=== PATIENT | male | born 1970 | race Caucasian/White ===

== ENCOUNTER → 2024-04-17 06:07 | Day surgery (SDC) | payer OTHER, SELFPAY | LOC: GI 06:07 | PROVIDERS: ATTENDING PHYSICIAN Internal Medicine Gastroenterology | DX: Z12.11 Encounter for screening for malignant neoplasm of colon (principal); D12.8 Benign neoplasm of rectum; K64.8 Other hemorrhoids; Z86.010 Personal history of colon polyps | CPT/HCPCS: 45380; 88305 ==

== ENCOUNTER → 2025-07-14 11:59 | Outpatient (REF) | payer OTHER, SELFPAY | LOC: RAD 11:59 | PROVIDERS: ATTENDING PHYSICIAN Physician Assistant Medical; FAMILY PHYSICIAN Family Medicine | DX: M54.2 Cervicalgia (principal) | CPT/HCPCS: 72050 ==

== ENCOUNTER 2025-07-17 00:36 | Emergency (ER) | payer OTHER, SELFPAY ==
[2025-07-17 00:49] VITALS: BP 145/97
[2025-07-17 01:14] LABS: Hematocrit 40.8 % (39.0-52.0); Hemoglobin 14.3 g/dL (13.0-18.0); Mean Corp Hgb Conc. 35.0 g/dL (33.0-37.0); Mean Corpuscular Volume 89.7 fL (80.0-94.0); Nucleated Red Blood Cells % 0 % (-); Platelet Count 199 10^3/uL (130-400); Red Cell Dist. Width 11.4 % (11.5-14.5)
[2025-07-17 01:37] LABS: ALT (SGPT) 26 U/L (0-50); AST (SGOT) 28 U/L (17-59); Albumin 4.7 g/dl (3.5-5.0); Alkaline Phosphatase 59 U/L (38-126); Blood Urea Nitrogen 12 mg/dl (9-20); Calcium 9.4 mg/dl (8.4-10.2); Carbon Dioxide 26 mmol/L (22-30); Chloride 100 mmol/L (98-107); Glucose 106 mg/dl (70-99); Potassium 4.5 mmol/L (3.5-5.1); Sodium 132 mmol/L (135-145); Total Protein 7.6 g/dl (6.3-8.2); eGFR > 60.00
[2025-07-17 01:48] LABS: Troponin I < 0.012 ng/ml
[2025-07-17 04:07] VITALS: BP 160/101
--- NOTE | 2025-07-17 05:03 | ED.GENMED ---
History of Present Illness
General
Chief Complaint: Chest Pain
Source: patient
Exam Limitations: none
Time Seen by Provider: 07/17/25 03:43
Nursing documentation reviewed up to this point in time: agreed with
History of Present Illness
History of Present Illness:
54-year-old male with past medical history as noted presents to the ER for evaluation of chest pains. Patient reports symptoms have been intermittent over the past week or so; he says he had a more intense episode last night associate with some
shortness of breath which prompted ER visit. He reports a sharp pain in the left chest radiates towards the shoulder. No clear triggering or relieving factors noted. He does report that he has had increased fatigue recently. He also reports he
has been having trouble with headaches/migraines. 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 He denies any known cardiac history. He does note that he has been
under tremendous stress recently including the recent suicide of his father.
Past History
Past History
ED Past Medical History: CVA, GERD, Hypercholesterolemia and Other (sciatica)
ED Past Surgical History: None
Social History
Tobacco: Non-smoker
Living: with family
Review of Systems
Review of Systems
All Other Systems: ROS reviewed and negative except as documented in HPI and ROS
Constitutional: Reports fatigue; Denies fever
Respiratory: Reports trouble breathing
Cardiac: Reports chest pain; Denies diaphoresis or palpitations
ABD/GI: Denies abdominal pain or nausea
Musculoskeletal: Denies edema
Neurological: Reports headache; Denies dizzy, weakness or numbness
Phy Exam
Physical Exam
Physical Exam:
General: Awake, alert, oriented x3; resting comfortably in no acute distress
Head: Normocephalic, atraumatic
Eyes: Conjunctiva normal, sclera anicteric
Throat: Airway intact, handling secretions
Neck: Trachea midline, supple without meningismus
Lungs: Clear to auscultation bilaterally, no wheezing, rales, rhonchi
Heart: Regular rate and rhythm, no murmurs, gallops, or rubs
Abd: Soft, non distended, nontender
Neuro: Grossly intact
Skin: no rash
Extremities: No edema in extremities, equal pulses in all extremities
Scores
Heart Failure Risk
Heart Failure Risk Score: Not Applicable
Heart Score for Chest Pain Patients
STEMI patient?: No
History: Slightly or Non-Suspicious
ECG: Normal
Age: >45 - <65 years
Risk Factors: 1 or 2 Risk Factors
Troponin: </= Normal Limit
Heart Score for Chest Pain Patients: 2
Heart Score Risk: 2.5% MACE over next 6 weeks
Withdrawal Assessment of Alcohol
Withdrawal Assessment Completed?: Not applicable
Course
Orders/Labs/Results
Orders:
Orders
07/17/25 00:59
Electrocardiogram (*1) Urgent
Reason for Study: Other
Other Reason for Exam: Respiratory Distress
Cardiac Monitoring- Treatment ONCE
EKG- Treatment ONCE
IV Insert/Care/Rem.- Treatment PRN
CR Chest - 2 Views Urgent
Comment:
Reason For Exam: respiratory distress
O2 Therapy [RESP] Urgent
Titrate/Wean O2 to maintain O2 sat greater than (%): 93
Special Instructions: TO MAINTAIN CONTINUOUS O2 SATS >/= 93%
Pulse Ox/cont/shift [RESP] Urgent
Quantity: 1
Special Instructions: continuous pulse ox
07/17/25 01:05
Complete Blood Count/With Diff Urgent
Comprehensive Metabolic Panel Urgent
NT-proBNP Urgent
Troponin I Urgent
07/17/25 05:07
Troponin I Urgent
Abnormal Lab Results
07/17/25
01:05
RBC 4.55 L 10^6/uL
(4.70-6.10)
MCH 31.4 H pg
(27.0-31.0)
RDW 11.4 L %
(11.5-14.5)
Absolute Monos (auto) 0.7 H 10^3/uL
(0.1-0.6)
Monocytes % 10.3 H %
(1.7-9.3)
Sodium 132 L mmol/L
(135-145)
Glucose 106 H mg/dl
(70-99)
07/17/25 01:05
07/17/25 01:05
Vital Signs
Initial and Last Documented VS:
Initial Vital Signs
Temp Pulse BP Pulse Ox
36.6 C 67 145/97 97
07/17/25 00:49 07/17/25 00:49 07/17/25 00:49 07/17/25 00:49
Last Documented Vital Signs
Temp Pulse Resp BP Pulse Ox
36.6 C 62 16 160/101 99
07/17/25 00:49 07/17/25 04:07 07/17/25 04:07 07/17/25 04:07 07/17/25 05:07
MDM/Problems Addressed
Differential Diagnosis Includes:
Angina/ACS, costochondritis, GERD, anxiety, arrhythmia, pneumothorax or pneumonia; very low clinical suspicion for PE or aortic dissection in my judgment no further workup for these diagnosis is indicated at this point in time
MDM/Problems Addressed:
54-year-old male presents to the ER for evaluation of atypical nonexertional chest pains intermittently over the past week or so in the setting of recent heavy stress. Currently asymptomatic. Vitals and exam as above. EKG shows sinus rhythm with
no STEMI. He had labs in triage including a CBC and CMP which showed no clinically significant abnormalities. Troponin undetectable x 1. Will check repeat troponin. Chest x-ray shows no acute disease on my independent review. Will monitor and
reassess after the above.
Repeat troponin undetectable. Clinically stable on reassessment. Stable for discharge will refer to chest pain hotline for expedited follow-up of his chest pain. Patient comfortable with this plan. All questions answered.
*Radiology
Radiology exam reviewed: preliminary read by ED provider
*Pulse Oximetry
SaO2: 99
Oxygen Mode of Delivery: Room air
Patient hypoxic: no (99%)
*EKG
Interpreted by ED Provider?: Yes
Heart Rate: 56
Rate: bradycardiac
Rhythm: sinus
Graff: normal axis
Interval: normal interval
QRS Pattern: normal QRS
Ischemia: no ischemia
*Critical Care Note
Total Time (30-74mins, 75-104mins- exclusive of procedures): Not Applicable
Data Reviewed
Source: patient
ED Attending Note
-
Portions of this chart may have been created with voice recognition software.� Occasional wrong word or��sound alike� substitutions may have occurred due to the inherent limitations of voice recognition software.
Discharge Plan
Departure
Patient Disposition: Home (Routine Discharge)
Date of Disposition: 07/17/25
Time of Disposition: 06:01
Patient with high blood pressure during this ER visit?: Yes
Discharge Problem:
Chest pain
Instructions: Chest Pain CBC Follow Up
Prescriptions:
No Action
omeprazole 40 MG capsule,delayed release(DR/EC)
40 mg PO DAILY
polyvinyl alcohol-povidone(PF) [Refresh Classic (PF)] 10 DROPS dropperette
1 drops BOTH EYES QIDPRN PRN (Reason: dry eye)
cannabidiol [Epidiolex] 1 UNIT solution
4 - 5 puff inhalation QPMPRN PRN (Reason: pain)
Patient Comments:
08/19/20 smoke/vape/flower. Fills at [facility] in [place]
atorvastatin 80 MG tablet
80 mg PO QPM Qty: 30 0RF
loratadine 10 MG tablet
10 mg PO DAILY
aspirin 81 MG tablet,delayed release (DR/EC)
81 mg PO DAILY
ibuprofen 200 MG tablet
800 mg PO DAILYPRN PRN (Reason: moderate pain)
multivitamin with folic acid [Tab-A-Kanwal] 1 TABLET tablet
1 tab PO DAILY
Tylenol Pm Ex-Strength Caplet
1,000 mg PO PRN PRN (Reason: PRN)
lidocaine [Aspercreme (lidocaine)] 1 PATCH adhesive patch,medicated
1 patch topical DAILY Qty: 30 0RF
cyclobenzaprine 5 MG tablet
5 mg PO HS PRN (Reason: neck pain) Qty: 20 0RF
Referrals:
Juan Carlos Valdovinos MD [Family Provider, Family Practice]
Wu Ness MD [Active, Cardiology] - Call in 1-3 days for appt
Activity Restrictions/Additional Instructions:
Thank you for visiting the Emergency Department at [facility].
1. Please schedule a follow up appointment as directed. Call first thing tomorrow morning to make an appointment.
2. If indicated, please take your medications as instructed and indicated on discharge paperwork.
3. If any of your symptoms do not improve, or persist, or become more severe within 6-12 hours, please return to the emergency department for further care.
4. Please return to the emergency department if you develop a headache, neck pain/stiffness, fever greater than 100.4F, chest pain, shortness of breath, persistent nausea, vomiting, slurred speech, difficulty walking, numbness/tingling, weakness,
signs of infection or any other symptoms that are worrisome to you.
Please call [phone] if you have any questions.
Interventions
Interventions:
*Risk Screen - Suicide Last Done: 07/17/25 00:51
*General Assessment Last Done: 07/17/25 00:51
*Neglect/Abuse Screening Last Done: 07/17/25 00:51
*ED- Fall Risk Assessment Last Done: 07/17/25 00:51
*ED COVID-19 Vaccine History Last Done: 07/17/25 00:51
*ED Influenza Vaccine History Last Done: 07/17/25 00:51
ED- Cardiac Assessment Last Done: 07/17/25 04:08
Discharge Date and Time
Print Language: GEORGIAN
[2025-07-17 05:59] LABS: Troponin I < 0.012 ng/ml
[2025-07-17 06:05] VITALS: BP 153/92
== END 2025-07-17 06:06 | disposition home or self-care (01) ==
LOC: EMR 00:36
PROVIDERS: Emergency Medicine; EMERGENCY PHYSICIAN Emergency Medicine; FAMILY PHYSICIAN Family Medicine
DX: R07.9 Chest pain, unspecified (principal); E78.00 Pure hypercholesterolemia, unspecified; Z86.73 Personal history of transient ischemic attack (TIA), and cerebral infarction without residual deficits
CPT/HCPCS: 99285; 71046; 80053; 83880; 84484; 85025; 93005

== ENCOUNTER → 2025-07-27 06:35 | Outpatient (REF) | payer OTHER, SELFPAY | LOC: MRI 3T 06:35 | PROVIDERS: ATTENDING PHYSICIAN Physician Assistant Medical | DX: M50.30 Other cervical disc degeneration, unspecified cervical region (principal); M54.12 Radiculopathy, cervical region | CPT/HCPCS: 72141 ==

== ENCOUNTER → 2025-07-30 09:37 | Outpatient (REF) | payer OTHER, SELFPAY | LOC: RAD 09:37 | PROVIDERS: ATTENDING PHYSICIAN Student in an Organized Health Care Education/Training Program; FAMILY PHYSICIAN Family Medicine | DX: R07.9 Chest pain, unspecified (principal) | CPT/HCPCS: 75574; Q9967 ==